=== PATIENT | male | born 2000 | race Caucasian/White ===

== ENCOUNTER 2025-02-27 16:15 | Emergency (ER) | payer OTHER ==
[2025-02-27 16:43] LABS: #Basophils 0.03 10x3/uL (0.0-0.2); #Eosinophils 0.09 10x3/uL (0.0-0.7); #Monocytes 0.40 10x3/uL (0.11-0.59); #Neutrophils 3.53 10x3/uL (1.40-6.50); %Basophils 0.5 % (0.0-1.0); %Eosinophils 1.6 % (0.0-10.0); %Lymphocytes 27.2 % (21.0-51.0); %Monocytes 7.2 % (0.0-10.0); %Neutrophils 63.1 % (42.0-75.0); Hematocrit 43.0 % (42.0-52.0); Hemoglobin 14.8 g/dL (14.0-18.0); Mean Corpuscular Hemoglobin 28.6 pg (27.0-31.0); Mean Corpuscular Volume 83.2 fL (78.0-98.0); Platelet Count 219 10x3/uL (130-400); Red Blood Cell (RBC) Count 5.17 mill/uL (4.70-6.10); White Blood Cell (WBC) Count 5.59 10x3/uL (4.8-10.8)
[2025-02-27 17:11] LABS: ALT (SGPT) 22 U/L (Less than 45); AST (SGOT) 21 U/L (11-34); Albumin 4.7 g/dL (3.1-4.5); Alkaline Phosphatase 70 U/L (40-110); Anion Gap 16 mmol/L (10-20); BUN (Urea Nitrogen) 17 mg/dL (8.9-20.6); Bilirubin, Total 0.7 mg/dL (0.3-1.2); Calc. Creatinine Clearance 0 mL/min (70-130); Calcium 9.6 mg/dL (7.8-10.44); Carbon Dioxide 22 mmol/L (22-29); Chloride 104 mmol/L (98-107); Globulin 2.5 g/dL (2.4-3.5); Glucose 92 mg/dL (70-105); Potassium 3.9 mmol/L (3.5-5.1); Sodium 138 mmol/L (136-145)
== END 2025-02-27 18:25 | disposition home or self-care (01) ==
LOC: ERS 16:15
DX: G40.909 Epilepsy, unspecified, not intractable, without status epilepticus (principal); Z79.899 Other long term (current) drug therapy
CPT/HCPCS: 36415; 80053; 80177; 83605; 84146; 85025; 96374; J2060